=== PATIENT | female | born 1990 | race Caucasian/White ===

== ENCOUNTER 2021-05-08 08:00 | Day surgery (SDC) | payer OTHER ==
[~2021-05-08] VITALS: Ht 175.3 cm; Wt 93.2 kg
--- NOTE | ~2021-05-08 | OR ---
[facility] [address], [place] [address] Draft DATE OF OPERATION: 05/08/2021 SURGEON: Holly Caba MD PREOPERATIVE DIAGNOSIS: Chronic acalculous cholecystitis (clinical diagnosis). POSTOPERATIVE DIAGNOSIS: Chronic acalculous cholecystitis (clinical diagnosis). PROCEDURES: 1. Laparoscopic cholecystectomy with intraoperative cholangiogram. 2. Surgeon-directed fluoroscopy. ANESTHESIA: General endotracheal; Deng Chauhan CRNA and local 20 mL of 0.25% Marcaine with epinephrine. INDICATION: This 31-year-old white woman is a patient of Dr. Dow and has had complaints of right subcostal pain, two episodes which were rather severe. She continues to have postprandial bloating, fullness and a fair amount of disabling nausea. Evaluation by Dr. Dow include a gallbladder ultrasound which did not show gallstones, but did show a contracted gallbladder. This was notable as she had at least 8 hours without anything to eat or drink. Consideration was made for a CCK-HIDA test; however given her clinical symptoms, the findings on ultrasound and so forth, I have recommended consideration of cholecystectomy preferably by laparoscopic approach for what is likely to be chronic acalculous cholecystitis. The risks of bleeding, infection, bile duct injury, need for open procedure, and of course failure to cure her symptoms was reviewed in detail and she understands and wished to proceed. FINDINGS: Indeed, the gallbladder was chronically inflamed. There were dense omental adhesions to the surface of the gallbladder also. The gallbladder once excised had a fine reticular network of cholesterolosis and chronic inflammatory change of the mucosa. Of special note, the cholangiogram was normal. An incidental pancreatogram was also seen. The liver appeared mildly fatty infiltrated, but otherwise normal. DESCRIPTION OF PROCEDURE: The patient was brought to the operating room, given a general endotracheal anesthetic. PATIENT NAME: ADELIA SEGURA OPERATIVE REPORT DATE OF : [birth year] REPORT #: [id number] PHYSICIAN: HOLLY CABA MD PCP: SADA DOW MD REPORT IS CONFIDENTIAL AND NOT TO BE RELEASED WITHOUT AUTHORIZATION [facility] [address], [place] [address] Draft Preoperative antibiotic Ancef was given. Sequential compression device stockings were used and heparin subcutaneously administered. After satisfactory general endotracheal anesthesia, the abdomen is prepared with a chlorhexidine solution and draped sterilely. An infraumbilical incision was made and using an open Aahsish cannula technique, the abdomen was entered and pneumoperitoneum was achieved to a level of 14 mmHg of carbon dioxide gas. Intraabdominal inspection showed no sign of ascites or carcinomatosis. The gallbladder had a chronic inflammatory appearance, a dull, anthony white appearance and dense omental adhesions. Three additional trocars were placed in usual configuration in the subxiphoid, right midclavicular, and right anterior axillary line. The apex of the gallbladder was elevated and dense omental adhesions were taken down with blunt and electrocautery dissection. This allowed for further elevation of the gallbladder. Once this was accomplished, the infundibulum was grasped and retracted laterally and using blunt and electrocautery dissection, the triangle of Calot was dissected free. The cystic arterial branches were identified, but not yet clipped. A clip was applied across the gallbladder cystic duct junction and a transverse choledochotomy was made in the cystic duct. Retrograde milking of the cystic duct showed egress of clear bile. Using an Jackson type cholangiocatheter, intraoperative cholangiography was undertaken showing free flow of contrast in the biliary tree with prompt emptying into the duodenum retrograde filling of the more proximal biliary tree was noted. The cystic duct itself was rather lengthy. The catheter was removed and the cystic duct was triply clipped and ultimately divided and the gallbladder then dissected free in a retrograde fashion using electrocautery. The gallbladder was placed in an endobag and extracted through the infraumbilical port site opened on the back table and found to have chronic inflammatory change including cholesterolosis. Irrigation was undertaken in the subhepatic space. Excess irrigation of fluid was suctioned free. Hemostasis was assured in the gallbladder bed with electrocautery. Attention was turned towards withdrawal of the trocars. There appeared to be some oozing of blood at the epigastric port site and on that basis, a Santiago-Julia device was used to secure the fascia more fully with 0 Vicryl suture. Two such stitches were placed providing for excellent hemostasis. Irrigation was undertaken of the abdomen removing some amount of blood that had come from the trocar site. The trocars were then removed under direct visualization showing no additional bleeding. Plans were then made for closure. The infraumbilical fascial incision was reapproximated with interrupted 0 Vicryl suture. Irrigation was undertaken PATIENT NAME: ADELIA SEGURA OPERATIVE REPORT DATE OF : [birth year] REPORT #: [id number] PHYSICIAN: HOLLY CABA MD PCP: SADA DOW MD REPORT IS CONFIDENTIAL AND NOT TO BE RELEASED WITHOUT AUTHORIZATION [address] [address] Draft at each site and the skin closed with interrupted 3-0 Vicryl. Steri-Strips were applied. She was ultimately extubated and transferred to the recovery room in good condition having suffered no complication. Sponge, needle, and instrument counts were reported as correct x3. MD VALENTIN Fernandez/TARA /[id number] cc: Dr. Dow Copies: ~ PATIENT NAME: ADELIA SEGURA RISHABH OPERATIVE REPORT DATE OF : [birth year] REPORT #: [id number] PHYSICIAN: HOLLY CABA MD PCP: SADA DOW MD REPORT IS CONFIDENTIAL AND NOT TO BE RELEASED WITHOUT AUTHORIZATION
[~2021-05-08 08:00] MED LIST: B12 ACTIVE1000 MCG PO; METFORMIN HCL1000 M2 PO; OSTERA TABLET1 EACH PO; VIT C-ROSE HIP500 MG PO; [UNRECOGNIZED DRUG - OTHER] PO
[2021-05-08] MEDS ORDERED: VITAMIN D3125 MCG PO (08:27)
--- NOTE | 2021-05-08 10:56 | NUR ---
05/08/21 1056 Caitlyn Hyde 1050 PATIENT ARRIVES TO PACU AWAKE, BUT CONFUSED. DOES NOT FOLLOW COMMANDS. RESP EVEN AND UNLABORED, PATIENT PULLING MASK OFF. OXYGEN OFF. ROOM AIR SATS 100%. 1055 PATIENT AWAKE OFF/ON. VERY DROWSY. SLURRED SPEECH. ASKING FOR GLASSES. GLASSES GIVEN TO PATIENT. RESP EVEN AND UNLABORED, ROOM AIR SATS 100%. RESTING WITH EYES CLOSED.
[2021-05-08] MEDS ORDERED: IBUPROFEN600 MG PO (10:58)
[2021-05-08] MEDS ORDERED: OXYCODON-ACETA1 EAC2 PO (10:59)
[2021-05-08] MEDS ORDERED: ACETAMINOPHEN500 MG PO (10:59)
--- NOTE | 2021-05-08 11:43 | NUR ---
PATIENT BACK IN DAY SURGERY ROOM FROM PACU. C/O NUASEA. MEDICATED FOR NAUSEA IN PACU. RATES PAIN 5/10. DECLINES PAIN MEDICATION AT THIS TIME. PATIENT REQUESTS TO SLEEP. VS CHECKED. ABDOMINAL SITES WITH STERI STRIPS. SCANT AMOUNT OF RED DRAINAGE AT ABDOMINAL SITES. IV SITE WNL. SCDs ON. ICE WATER AT BEDSIDE. CALL LIGHT WITHIN REACH. LIGHTS TURNED OFF SO PATIENT CAN SLEEP.
--- NOTE | 2021-05-08 12:04 | NUR ---
PATIENT PUT SHAKE OUT WORKER LIGHT. REQUESTS PAIN MEDICATION AT THIS TIME. PATIENT GIVEN CRACKERS AND JELLO TO EAT. MEDICATED FOR PAIN WITH 1 TAB OF OXYCODONE. CALL LIGHT WITHIN REACH.
--- NOTE | 2021-05-08 12:25 | NUR ---
PATIENT PUT ALMOND SORTER LIGHT. PATIENT REQUESTS TO GO TO BATHROOM. PATIENT ASSISTED OOB AND TO BATHROOM. GATI STEADY. VOID WITHOUT DIFFICULTY. GAIT STEADY BACK TO ROOM. SCDs REPLACED. CALL LIGHT WITHIN REACH.
--- NOTE | 2021-05-08 13:13 | NUR ---
1240: CHECKED PATIENT. PATIENT SLEEPING. ALLOWED PATIENT TO CONTINUE TO SLEEPING. 1305: VS CHECKED. PATIENT STATES PAIN IMPROVED. RATES PAIN 2/10. LUNCH ORDERED FOR PATIENT. NO OTHER NEEDS AT THIS TIME. CALL LIGHT WITHIN REACH.
--- NOTE | 2021-05-08 14:01 | NUR ---
VS CHECKED. PATIENT TIRED. REQUESTS TO SLEEP. CALL LIGHT WITHIN REACH. PATIENT REQUESTED SCDs TO BE TAKEN OFF. TOLERATED LUNCH.
--- NOTE | 2021-05-08 15:48 | NUR ---
1505: PATIENT AWAKENED. VS CHECKED. PATIENT STATES FEELS LIKE SHE'S READY TO WORK ON GETTING HOME. PATIENT ASSISTED OOB AND TO BATHROOM. GAIT STEADY TO AND FROM BATHROOM. DISCHARGE INSTRUCTIONS GIVEN TO PATIENT. 1535: PATIENT MEDICATED FOR PAIN WITH 1 TABLET OF PERCOCET. IV DC'D WNL. TIP INTACT. DRESSING APPLIED. HERE TO TAKE PATIENT HOME. PATIENT DISCHARGED TO HOME WITH VIA WHEELCHAIR.
--- NOTE | 2021-05-09 11:58 | PATH ---
[facility] [address], [place] [address] Signed SPECIMEN(S): A GALLBLADDER SPECIMEN SOURCE: A. GALLBLADDER CLINICAL HISTORY: Laparoscopic cholecystectomy. Chronic cholecystitis without calculus. FINAL PATHOLOGIC DIAGNOSIS: Gallbladder, cholecystectomy: - Chronic acalculous cholecystitis with cholesterolosis. BRP:cml:[id number] MICROSCOPIC EXAMINATION: Histologic sections of all submitted blocks are examined by light microscopy. These findings, together with the gross examination, support the pathologic diagnosis. GROSS DESCRIPTION: The specimen, labeled "SC," and designated on the requisition "gallbladder," is received in formalin and consists of Specimen: Previously opened gallbladder. Dimensions: 5.8 x 3.5 x 1.0 cm. Serosa: Yellow-green and smooth. Cystic Duct: Unobstructed, margin inked black and shaved. Calculi: Not grossly identified. Mucosa: Green and velvety with yellow stippling. Wall thickness: 0.5 cm. Lymph node: No pericystic lymph nodes are grossly identified. Additional: None. Filter Assembler sections are submitted in cassette (A1). AC (under the direct supervision of a pathologist) The Gross Description was prepared using a voice recognition system. The report was reviewed for accuracy; however, sound-alike word errors, addition and/or deletions may occur. If there is any question about this report, please contact Client Services. PERFORMING LABORATORY: The technical component was performed by [facility], [address] [place] [id number] (Chef Manager: Ashanti Cortes MD; CLIA# [id number]). Professional interpretation was performed by PATIENT NAME: ADELIA SEGURA PATHOLOGY DATE OF : [birth year] REPORT #: [id number] PHYSICIAN: [facility] PCP: SADA DOW MD REPORT IS CONFIDENTIAL AND NOT TO BE RELEASED WITHOUT AUTHORIZATION [facility] [address], [place] [address] Signed [facility], [facility], [address] [facility] [address], [place] [address] (CLIA# [id number]). Diagnostician: Lucian aKn MD Pathologist Electronically Signed 05/09/2021 Copies: ~ PATIENT NAME: ADELIA SEGURA PATHOLOGY DATE OF : [birth year] REPORT #: [id number] PHYSICIAN: [facility] PCP: SADA DOW MD REPORT IS CONFIDENTIAL AND NOT TO BE RELEASED WITHOUT AUTHORIZATION
== END 2021-05-08 15:38 | disposition home or self-care (01) ==
LOC: DS 08:00
PROVIDERS: ATTEND Surgery
PROC: BF13YZZ Fluoroscopy of Gallbladder and Bile Ducts using Other Contrast (ICD-10-PCS; 2021-05-08)
PROC: 0FT44ZZ Resection of Gallbladder, Percutaneous Endoscopic Approach (ICD-10-PCS; principal; 2021-05-08 09:00)
DX: K81.1 Chronic cholecystitis (principal); E66.9 Obesity, unspecified; E28.2 Polycystic ovarian syndrome; Z88.8 Allergy status to other drugs, medicaments and biological substances
CPT/HCPCS: 00790; 74300; J0131; J0330; J0690; J1100; J1644; J1790; J1885; J2250; J2405; J2704; J3010; J7121; Q9967